=== PATIENT | female | born 1975 | race Caucasian/White ===

== ENCOUNTER 2017-12-27 05:33 | Day surgery (SDC) | payer BC ==
[~2017-12-27] VITALS: Ht 160 cm; Wt 64.4 kg
[~2017-12-27 05:33] MED LIST: ADVIL200 MG PO; MULTIPLE VITAM1 EACH PO
[2017-12-27 05:52] VITALS: BP 137/80
[2017-12-27] MEDS ORDERED: IBUPROFEN800 MG PO (07:19)
[2017-12-27] MEDS ORDERED: ENDOCET 5-3251 EACH PO (07:19)
[2017-12-27 11:30] VITALS: BP 110/58
[2017-12-27 13:30] VITALS: BP 132/77
[2017-12-27 14:50] VITALS: BP 125/76
== END 2017-12-27 14:35 | disposition home or self-care (01) ==
LOC: SDC 05:33
DX: D25.9 Leiomyoma of uterus, unspecified (principal); N80.0 Endometriosis of uterus; Z86.718 Personal history of other venous thrombosis and embolism
CPT/HCPCS: 88307; J0131; J0690; J1100; J1170; J2250; J2405; J2765; J3010